=== PATIENT | female | born 1950 | race Caucasian/White ===

== ENCOUNTER 2016-06-28 09:58 | Emergency (ER) | payer OTHER ==
[~2016-06-28] VITALS: Ht 167.6 cm; Wt 64.4 kg
[~2016-06-28 09:58] MED LIST: ACIPHEX20 M1 PO; AMBIEN10 M1 PO; BENADRYL25 MG PO; BENZONATATE200 M1 PO; BUPROPION HYDR300 M1 PO; COUMADIN3 M1 PO; COUMADIN6 M1 PO; GABAPENTIN300 M2 PO; LEVOTHYROXINE25 MCG PO; PREMARIN V0.625 MG/G VAG; PROVENTIL HFA6.7 GM INH; SERTRALINE HCL100 MG PO; TAMIFLU 75MG75 MG PO; VESICARE10 MG PO; WARFARIN SODIUM3 MG PO; ZITHROMAX250 M2 PO; ZOCOR20 M1 PO
[2016-06-28 10:01] VITALS: BP 146/88
--- NOTE | 2016-06-28 11:01 | RADIOLOGY REPORT ---
EXAMINATION: XR CALCANEUS, RIGHT CLINICAL INFORMATION: Bruising under the heel. Evaluate for fracture. COMPARISON: None TECHNIQUE: Lateral and axial views of the right calcaneus were obtained. FINDINGS: Bones of the ankle/hindfoot appear intact on the two radiographic projections. No evidence of calcaneal fracture or talar injury. The subtalar joint is normal. There are enthesophytes at the posterior and plantar surfaces of the calcaneus. Mild soft tissue swelling is seen in the subcutaneous tissues at the heel. No radiopaque foreign body. IMPRESSION: 1. No evidence of osseous injury at the right heel. Specifically, no evidence of calcaneal fracture. 2. Calcaneal enthesophytes are noted. 3. Soft tissue swelling at the plantar aspect of the heel.
[2016-06-28] MEDS ORDERED: BUPROPION XL300 M1 PO (11:15)
[2016-06-28 11:25] LABS: PT 49.4 SEC (9.4-12.5)
--- NOTE | 2016-06-28 11:45 | ED ANKLE/FOOT INJURY COMPLAINT ---
History of Present Illness General Chief Complaint: Foot or Ankle Injury Stated Complaint: RIGHT HEEL PAIN, REDNESS X 1 DAY Source: patient Exam Limitations: no limitations Vital Signs & Intake/Output Vital Signs & Intake/Output Vital Signs Date Time Temp Pulse Resp B/P B/P Pulse O2 O2 Flow FiO2 Mean Ox Delivery Rate 06/28 1044 Room Air Room Air 06/28 1001 96.9 102 18 146/88 96 Room Air Allergies Coded Allergies: Iodinated Contrast Media - Oral and (IODINATED CONTRAST MEDIA - IV DYE) (HIVES 07/02/15) cefazolin (HIVES 07/02/15) cephalexin (From KEFLEX) (HIVES 07/02/15) hydroxyzine (From VISTARIL) (HIVES 07/02/15) methocarbamol (From ROBAXIN) (HIVES 07/02/15) metoclopramide (From REGLAN) (UNKNOWN 07/02/15) morphine (HIVES 07/02/15) pneumococcal vaccine (SKIN RASH 07/02/15) prochlorperazine (From COMPAZINE) (UNKNOWN 07/02/15) psyllium (UNKNOWN 07/02/15) Reconcile Medications Bupropion HCl (Bupropion XL) 300 MG TAB.ER.24H 1 TAB PO QAM DEPRESSION ( Reported) Gabapentin 300 MG CAPSULE 1 CAP PO 4 TIMES/DAY FIBROMYALGIA (Reported) Levothyroxine Sodium 25 MCG TABLET 1 TAB PO DAILY AC THYROID (Reported) Rabeprazole Sodium (Aciphex) 20 MG TABLET.DR 1 TAB PO DAILY ACID REFLUX ( Reported) Sertraline HCl 100 MG TABLET 2 TAB PO DAILY DEPRESSION (Reported) Simvastatin (Zocor*) 20 MG TABLET 1 TAB PO DAILY CHOLESTEROL (Reported) Solifenacin Succinate (Vesicare) 10 MG TABLET 1 TAB PO DAILY BLADDER ( Reported) Warfarin Sodium (Coumadin) 6 MG TABLET 1 TAB PO SuTuWeThSa BLOOD THINNER ( Reported) Warfarin Sodium (Coumadin) 3 MG TABLET 1.5 TAB PO MoFr BLOOD THINNER ( Reported) Zolpidem Tartrate (Ambien) 10 MG TABLET 1 TAB PO QPM PRN SLEEP (Reported) Triage Note: 65 Y/O FEMALE C/O PAIN AND BRUISING UNDER R HEEL, FIRST NOTICED YESTERDAY AND WORSENING TODAY. DENIES INJURY OR COMPLAINTS. STATES SHE IS ON COUMADIN (HX PE) SO SHE IS CONCERNED. BRUISING NOTED UNDER HEEL. NO SURROUNDING SWELLING, NO OTHER AREAS OF BRUISING NOTED. PT TOOK 500MG TYLENOL 1 HOUR AGO Triage Nurses Notes Reviewed? yes Duration: day(s): (1), constant, continues in ED Timing: recent history No Modifying Factors: none HPI: 65-year-old female comes into emergency room for further evaluation of right heel pain. Symptoms of a going on for the past day. Patient is on Coumadin for previous history of pulmonary embolism back in 2004. Patient does not currently have health insurance and therefore has not had any follow-up with her INR and a few months. She is currently in the process of trying to get health insurance. She reports some pain to her right heel. Denies any trauma that she is aware. There is some swelling and bruising. Denies any other associated symptoms at this time. No vomiting blood. No blood in her stool. No headache. (REBECA RUIZ) Past History Travel History Traveled to [place] past 21 day No Medical History Any Pertinent Medical History? 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 No (REBECA RUIZ) Review of Systems Review of Systems Constitutional: Reports: no symptoms. EENTM: Reports: no symptoms. Respiratory: Reports: no symptoms. Cardiovascular: Reports: no symptoms. GI: Reports: no symptoms. Genitourinary: Reports: no symptoms. Musculoskeletal: Reports: no symptoms. Skin: Reports: see HPI. Neurological/Psychological: Reports: no symptoms. Hematologic/Endocrine: Reports: see HPI. Immunologic/Allergic: Reports: no symptoms. All Other Systems: Reviewed and Negative (REBECA RUIZ) Physical Exam Physical Exam General Appearance: well developed/nourished, mild distress Head: atraumatic Eyes: Bilateral: normal appearance. Ears, Nose, Throat: normal ENT inspection, hearing grossly normal Neck: normal inspection Cardiovascular/Respiratory: no respiratory distress Back: normal inspection Leg/Knee/Thigh Left: normal inspection Leg/Knee/Thigh Right: no edema right leg, no swelling, no warmth, Foot Right: ecchymosis to right heel, soft tissue swelling, Psychiatric: awake, alert, oriented x 3 Skin: intact, normal color, warm/dry (REBECA RUIZ) Progress Differential Diagnosis: arterial insufficiency, cellulitis, gout, fracture, dislocation, sprain, contusion, compartmental syndrome Plan of Care: Orders Procedure Date/time Status PROTHROMBIN TIME 06/28 1039 Complete Laboratory Tests 06/28/16 1045: PT 49.4 *H, INR 4.78 *H Diagnostic Imaging: Viewed by Me: Radiology Read. Discussed w/RAD: Radiology Read. Radiology Impression: SERVICE DATE: 06/28/16 EXAM TYPE: RAD - XRY-HEEL, RIGHT EXAMINATION: XR CALCANEUS, RIGHT CLINICAL INFORMATION: Bruising under the heel. Evaluate for fracture. COMPARISON: None TECHNIQUE: Lateral and axial views of the right calcaneus were obtained. FINDINGS: Bones of the ankle/hindfoot appear intact on the two radiographic projections. No evidence of calcaneal fracture or talar injury. The subtalar joint is normal. There are enthesophytes at the posterior and plantar surfaces of the calcaneus. Mild soft tissue swelling is seen in the subcutaneous tissues at the heel. No radiopaque foreign body. IMPRESSION: 1. No evidence of osseous injury at the right heel. Specifically, no evidence of calcaneal fracture. 2. Calcaneal enthesophytes are noted. 3. Soft tissue swelling at the plantar aspect of the heel. DICTATED BY: CHUCHO ALVARADO MD DATE/TIME DICTATED:06/28/161056 RIVET TOSSER:KALEB DATE/TIME TRANSCRIBED:06/28/161056 Comments: 06/28/2016 12:13:52 PM Patient clinically looks well. Patient is in no apparent distress. No evidence of fracture. Patient was instructed to hold her Coumadin today. Decreased the dose of her Coumadin tomorrow and Friday. Patient needs to get back in with her primary care doctor. Return if any other concerns. Case discussed with Dr. Trevino. (REBECA RUIZ) Departure Departure Disposition: HOME OR SELF CARE Condition: Stable Clinical Impression Primary Impression: Pain in heel Secondary Impressions: Elevated INR Referrals: DENNIS MANRIQUEZ MD (PCP/Family) Additional Instructions: Hold your Coumadin tonight. Take 4.5 mg tomorrow and Friday. Return Friday for recheck. Follow-up with your primary care doctor. Return if any vomiting blood , blood in your stool, or any other concerns worsening symptoms. Please go over all results of today's visit with your primary care doctor. Contact your primary care doctor to let them know you were here in the emergency room. There may be nonspecific findings which may not be related to your visit today here in the emergency room but may require further evaluation and chronic monitoring by your primary care doctor. If you had a laceration today the chance of foreign body always remains. You should follow-up with your primary care doctor for recheck in 3-5 days for a wound check. If you had an x-ray done there is a chance that a fracture could have been missed on initial read and you should follow-up with your primary care doctor for repeat x-rays if symptoms persist. If your blood pressure was elevated here in the emergency room please have rechecked by her primary care doctor within the next 48 hours by your primary care doctor. If you were prescribed a narcotic here in the emergency room or any type of controlled substances you're not allowed to drive while taking this medication or operate any type of heavy machinery. Narcotics can make you feel lightheaded dizziness nausea and can cause constipation. You may need to picker packer a stool softener. Thank you for choosing [facility] emergency room. Please return to the emergency room immediately if you have any other concerns worsening of symptoms. Departure Forms: Customer Survey General Discharge Information (REBECA RUIZ) PA/CENTRIFUGAL SPINNER Co-Sign Statement Statement: ED Attending supervision documentation- [] I saw and evaluated the patient. I have also reviewed all the pertinent lab results and diagnostic results. I agree with the findings and the plan of care as documented in the PA's/CENTRIFUGAL SPINNER's documentation. [X] I have reviewed the ED Record and agree with the PA's/CENTRIFUGAL SPINNER's documentation. [] Additions or exceptions (if any) to the PAs/CENTRIFUGAL SPINNER's note and plan are summarized below: [] (ELVIS THORNE,NELLIE Sanches)
== END 2016-06-28 11:51 ==
LOC: ERH 09:58
PROVIDERS: Physician Assistant Medical
DX: M79.671 Pain in right foot (principal); R79.1 Abnormal coagulation profile; Z79.01 Long term (current) use of anticoagulants
CPT/HCPCS: 73650-RT